=== PATIENT | female | born 1980 | race Caucasian/White ===

== ENCOUNTER → 2017-05-20 | Outpatient (CLI) | payer OTHER | LOC: FIMAGING 18:36 | DX: G35 Multiple sclerosis (principal) ==

== ENCOUNTER → 2018-05-17 | Outpatient (CLI) | payer OTHER | LOC: FIMAGING 12:21 | DX: G35 Multiple sclerosis (principal); Z79.899 Other long term (current) drug therapy ==

== ENCOUNTER → 2018-11-18 | Outpatient (CLI) | payer OTHER | LOC: FIMAGING 12:39 | DX: G35 Multiple sclerosis (principal) | CPT/HCPCS: 70551-PN ==